=== PATIENT | male | born 1970 | race Caucasian/White ===

== ENCOUNTER 2019-02-19 06:36 | Inpatient (IN) ==
[2019-02-19 07:15] VITALS: BMI 35.9
--- NOTE | 2019-02-19 07:32 | DR.AMS ---
HPI - Time Seen Time seen: 07:16 - PCP Primary Care Physician: miguelina - Complaint Cheif Complaint Doctors Comments: states the patient has had a virus earlier this week but told her he felt better yesterday but he did not eat and had increased drinking yesterday. States he has been confused going to the wrong room and not using his c-pap at night. He has a growth on the left side of his neck for over a year that he would not go to the doctor for evaluation because he was afraid of what they would find. States Dr. Pina gave him a requ est for x-rays of his neck but he would never go have them done. state he has been talking "out of his head today.". He has a sore on the right lower abdomen that has been draining and rash between his legs that he is not taking any medicines for. He was smoking three packs cigarettes daily but now is down to less than a pack daily. States she was trying to get him to come to the emergency room this morning and he fell and she and family members could not get him up and they call EMS and they brought him to the emergency room. He was a patient of Dr. Duarte. states he has had blood test but they have not told him he was a diabetic but he has high blood pressure. states he has beed drinking over a gallon of milk and juice yesterday and has been going to the bathroom constanty. They have a strong family history of diabetes. Chief Complaint:: PT BROUGHT IN VIA EMS. EMS TONED OUT TO MAN IN YARD AND SPOUSE COULDN NOT GET HIM OUT. PT IS WET FROM THE RAIN, PLACED DRY GOWN ON PT. PT IS NOT ABLE TO COMMUNITCATE VERBAL BUT DOES FOLLOW COMMANDS WHEN ASK TO TURN TO SIDE TO GET WET LINENS AND CLOTHES OFF. DREAD, SPOUSE OF STATES, PT HAS HAD A VIRUS OF SOME KIND. NAUSEA, DIARRHEA AND WEAK. HE STARTED BEING CONFUSED YESTERDAY. SPOUSE ALSO POINTS OUT WOUND IN RIGHT GROIN AREA, AND MASS LIKE KNOT ON LEFT SIDE OF PT NECK. - Reviewed Nurses Notes Reviewed: Yes - Source History Provided: Family Member - Mode of Arrival Mode of Arrival: EMS - Timing Onset of Chief Complaint: 02/19/19 Came On: Gradually Symptoms: Worsening Symptom Onset: Unknown - Duration Duration: Constant How lon Duration: Days - Quality Quality: Decreased Alertness, Change in Behavior, Confusion, Not Eating - Severity Severity: Severe, Unable to care for self - Context Recent: None History Of: None - Associated Signs and Symptoms Associated Signs and Symptoms: Generalized Weakness, Change in Behavior, Confusion, Decreased LOC, Change in Memory, Decreased Oral Intake PMH - PMH Past Medical History: Yes Past Medical History: Anxiety, Depression, Hyperthyroidism, Hypothyroidism Past Surgical History: Yes Surgical History: Abdominal Surgery - Family History History of Family Medical Conditions: Yes Family Medical History: [place], Hypertension - Social History Does patient currently use any type of tobacco product: Yes Have you used tobacco products in the last 12 months: Yes Type of Tobacco Use: Cigarettes Does any household member use tobacco: No Alcohol Use: Occasionally Do you use any recreational Drugs:: No Lives With: Spouse Lives Where: Home - infectious screening In the last 2 months have you had wt loss of >10#?: NO Have you had fever, night sweats or hemotysis?: No Have you traveled outside the country in the last 6 months?: No Isolation: Standard ROS - Review of Systems Constitutional: No Symptoms Reported, Weakness, Loss of Appetite Eyes: No Symptoms Reported ENTM: No Symptoms Reported Respiratoy: No Symptoms Reported Cardiovascular: No Symptoms Reported. negative: See HPI, Chest Pain, Edema, Palpitations, Syncope, Cyanosis, Skin Mottling, Other Gastrointestinal/Abdominal: No Symptoms Reported. negative: See HPI, Abdominal Pain, Constipation, Diarrhea, Nausea, Vomiting, Food Intolerance, Other Genitourinary: No Symptoms Reported Neurological: No Symptoms Reported, Depressed, Emotional Problems, Weakness, Problems Walking Musculoskeletal: No Symptoms Reported Integumentary: No Symptoms Reported, Lesions (left neck hard lesion greater than 10 cm), Wound (right groin draining lesion from skin; purulent secretion) Hematologic/Lymphatic: No Symptoms Reported Endocrine: No Symptoms Reported, Increased Thirst, Decreased Appetite Psychiatric: Depression PE - General Limitations: Altered Mental Status (not answering questions or attempting to talk) General Appearance: Lethargic, In Distress, Obese - Head Head Exam: Normal Inspection, Atraumatic, Normocephalic Head Exam Physical: negative: Laceration, Abrasion, Contusion, Hematoma, Raccoon Eyes, Monroe's Sign, Tenderness of Temporal Artery, CSF Rhinorrhea, CSF Otorrhea, Other - Eyes Eye exam: Normal Appearance, PERRL, EOMI. negative: Scleral Icterus, Conjunctival Injection, Nystagmus, Miosis, Mydrasis, Periorbital Swelling, Periorbital Tenderness, Other Pupils: Regular, Round: Bilateral, Reactive: Bilateral - ENT ENT Exam: Normal Exam, Normal Oropharynx, Normal External Ear Exam, Mucous Membranes Dry, TM's Normal Bilaterally External Ear Exam: Normal External Inspection TM/Canal Exam: Bilateral Normal Nose Exam: Normal Nose Exam. negative: Sinus Tenderness, Nasal Deviation, Crepitus, Septal Hematoma, Laceration, Abrasion, Other Mouth Exam: Normal Inspection. negative: Drooling, Trismus, Lip Swelling, Tongue Elevation, Tongue Swelling, Laceration, Other Throat Exam: Normal Inspection. negative: Tonsillar Erythema, Tonsillomegaly, Tonsillar Exudate, R Peritonsillar Mass, L Peritonsillar Mass, Muffled Voice, Other - Neck Neck Exam: Full ROM, Trachea Midline. negative: Normal Inspection (left lateral neck with large hard mass submandibular area) - Chest Chest Inspection: Normal Inspection, Symmetric Chest Wall Rise - Respiratory Respiratory Exam: Normal Lung Sounds Bilat Respiratory Exam: Bilateral Clear to Auscultation, Bilateral Decreased Breath Sounds - Cardiovascular Cardiovascular Exam: Regular Rate, Normal Rhythm, Normal Heart Sounds, Systolic Murmur - Abdominal Exam Abdominal Exam: Normal Inspection, Normal Bowel Sounds, Soft, Distention, Other (right lower abdomen inguinal area with 2cm lesion draining purulent secretion; firm area) Abdominal Tenderness: LUQ, Mild - Extremities Extremities Exam: Normal Inspection, Full ROM, Normal Capillary Refill. negative: Tenderness, Edema, Joint Swelling, Calf Tenderness, Other - Back Back Exam: Normal Inspection, Full ROM - Neurological Neurological Exam: Alert, Reflexes Normal. negative: Oriented X3 (patient not responding verbally but hold family members hand), Normal Gait (gait not tested) Patient Oriented To: Person. negative: Place (unable to evaluate; patient not answering questions) Speech: Expressive Aphasia Cranial Nerve Exam: Gag reflex (XI): Normal, Tongue Deviation: Normal Cerebellar Function: negative: Normal Gait (gait not tested) Upper Motor Neuron Exam: Babinski Sign: Normal DTR: bicep (L): 2+, bicep (R): 2+, Patellar (L): 2+, patellar (R): 2+ - Psychological Psychiatric Exam: Depressed ( states he has been depressed), Flat Affect. negative: Normal Mood (patient will not answer question) Expanded Psychiatric Exam: Poor Eye Contact. negative: Loose Associations (non- verbal; not responding to questions) - Skin Skin Exam: Warm, Dry (drainage right lower abdomen with abscess), Intact, Rash (groin rash inner thighs), Erythema - Vitals Vital Signs: Temp Pulse Resp BP Pulse Ox 02/19/19 06:59 97.8 F 126 H 30 H 133/95 98 ROR - Labs Reviewed Result Diagrams: 02/19/19 07:10 02/19/19 07:10 - Labs Reviewed Laboratory: WBC 12.0 X10^3/uL (3.6-10.0) H 02/19/19 07:10 RBC 5.18 X10^6/uL (4.7-6.0) 02/19/19 07:10 Hgb 17.0 g/dL (13.5-18.0) 02/19/19 07:10 Hct 53.3 % (42.0-54.0) 02/19/19 07:10 MCV 102.8 fL (80.0-100.0) H 02/19/19 07:10 MCH 32.8 pg (27.0-34.0) 02/19/19 07:10 MCHC 31.9 g/dL (33.0-35.0) L 02/19/19 07:10 RDW 14.6 % (11.6-16.5) 02/19/19 07:10 Plt Count 279 X10^3/uL (150.0-450.0) 02/19/19 07:10 MPV 11.6 fL (7.4-11.0) H 02/19/19 07:10 Neut % (Auto) 83.3 % (42.0-75.0) H 02/19/19 07:10 Lymph % (Auto) 7.4 % (21.0-51.0) L 02/19/19 07:10 Potter % (Auto) 8.8 % (0.0-13.0) 02/19/19 07:10 Eos % (Auto) 0.1 % (0.9-2.9) L 02/19/19 07:10 Baso % (Auto) 0.4 % (0.2-1.0) 02/19/19 07:10 Neut # (Auto) 10.0 x10^3/uL (2.2-4.8) H 02/19/19 07:10 Lymph # (Auto) 0.9 X10^3/uL (1.3-2.9) L 02/19/19 07:10 Potter # (Auto) 1.1 x10^3/uL (0.3-0.8) H 02/19/19 07:10 Eos # (Auto) 0.0 x10^3/uL (0.0-0.2) 02/19/19 07:10 Baso # (Auto) 0.1 X10^3/uL (0.0-0.1) 02/19/19 07:10 Absolute Nucleated RBC 0.1 /100WBC 02/19/19 07:10 PT 13.2 SECONDS (11.8-14.3) 02/19/19 07:10 INR Target Range - 02/19/19 07:10 INR 1.04 (0.8-1.3) 02/19/19 07:10 APTT 25.2 SECONDS (22.9-36.5) 02/19/19 07:10 PTT Comment - 02/19/19 07:10 Sample Site Lr 02/19/19 08:15 ABG pH 7.340 (7.35-7.45) L 02/19/19 08:15 ABG pCO2 32.0 mmHg (35.0-45.0) L 02/19/19 08:15 ABG pO2 81.0 mmHg (80.0-100.0) 02/19/19 08:15 ABG HCO3 17.3 mmol/L (22-26) L* 02/19/19 08:15 ABG O2 Saturation 95.0 % (90-100) 02/19/19 08:15 ABG Base Excess -7.5 mmol/L (-2.0-2.0) L 02/19/19 08:15 Axel Test Pos 02/19/19 08:15 A-a Gradient 79.0 mmHg 02/19/19 08:15 FiO2 28.0 02/19/19 08:15 Blood Gas Comments Som well cb 02/19/19 08:15 Sodium 141 mmol/L (136-145) 02/19/19 07:10 Corrected Sodium 172 mmol/L (136-145) H 02/19/19 07:10 Potassium 4.3 mmol/L (3.5-5.1) 02/19/19 07:10 Chloride 101 mmol/L (98-107) 02/19/19 07:10 Carbon Dioxide 17.6 mmol/L (21-32) L 02/19/19 07:10 BUN 29 mg/dL (7-18) H 02/19/19 07:10 Creatinine 2.07 mg/dL (0.70-1.30) H 02/19/19 07:10 Est GFR (MDRD) Af Amer 44 (>60) L 02/19/19 07:10 Est GFR (MDRD) Non-Af 36 (>60) L 02/19/19 07:10 Glucose 1399 mg/dL (65-99) H* 02/19/19 07:10 Calcium 11.8 mg/dL (8.5-10.1) H 02/19/19 07:10 Corrected Calcium TNP 02/19/19 07:10 Magnesium 3.1 mg/dL (1.7-2.9) H 02/19/19 07:10 Total Bilirubin 0.60 mg/dL (0.2-1.0) 02/19/19 07:10 AST 59 Units/L (15-37) H 02/19/19 07:10 ALT 100 Units/L (12-78) H 02/19/19 07:10 Alkaline Phosphatase 434 Units/L (46-116) H 02/19/19 07:10 Creatine Kinase 95 Units/L (39-308) 02/19/19 07:10 CK-MB (CK-2) < 1.0 ng/mL (0-4.0) 02/19/19 07:10 CK/CKMB % Calc 1.1 % (<4) 02/19/19 07:10 Troponin I < 0.02 ng/mL (0-1.5) 02/19/19 07:10 Total Protein 9.0 g/dL (6.4-8.2) H 02/19/19 07:10 Albumin 3.8 g/dL (3.4-5.0) 02/19/19 07:10 Globulin 5.2 g/dL (2.5-4.5) H 02/19/19 07:10 Albumin/Globulin Ratio 0.7 Ratio (1.1-2.1) L 02/19/19 07:10 Specimen Type Random urine 02/19/19 06:55 Urine Color Yellow (YELLOW) 02/19/19 06:55 Urine Appearance Clear (CLEAR) 02/19/19 06:55 Urine pH 5.0 (5.0 - 8.0) 02/19/19 06:55 Ur Specific Thida 1.010 (1.000-1.030) 02/19/19 06:55 Urine Protein 2+ (NEGATIVE) 02/19/19 06:55 Urine Glucose (UA) 4+ (NEGATIVE) 02/19/19 06:55 Urine Ketones 2+ (NEGATIVE) 02/19/19 06:55 Urine Occult Blood 3+ (NEGATIVE) 02/19/19 06:55 Urine Nitrite Negative (NEGATIVE) 02/19/19 06:55 Urine Bilirubin Negative (NEGATIVE) 02/19/19 06:55 Urine Urobilinogen Normal (NORMAL) 02/19/19 06:55 Ur Leukocyte Esterase Negative (NEGATIVE) 02/19/19 06:55 Urine RBC 3-5 /HPF (0-3) A 02/19/19 06:55 Urine WBC 0-2 /HPF (0-5) 02/19/19 06:55 Ur Squamous Epith Cells Rare /HPF (NEGATIVE) 02/19/19 06:55 Urine Bacteria Negative /HPF (NEGATIVE) 02/19/19 06:55 Ur Culture Indicated? No/not indicated 02/19/19 06:55 Urine Opiates Screen Negative (NEG=<300) 02/19/19 06:55 Urine Methadone Screen Negative (NEG=<300) 02/19/19 06:55 Ur Barbiturates Screen Negative (NEG=<200) 02/19/19 06:55 Ur Phencyclidine Scrn Negative (NEG=<25) 02/19/19 06:55 Ur Amphetamines Screen Negative (NEG=<1000) 02/19/19 06:55 U Benzodiazepines Scrn Negative (NEG=<200) 02/19/19 06:55 Urine Cocaine Screen Negative (NEG=<300) 02/19/19 06:55 U Marijuana (THC) Screen Negative (NEG=<50) 02/19/19 06:55 Opioid - Opioid Risk Tool Age (Jarrod box if 16-45): No History of Preadolescent Sexual Abuse: No Total: 0 Total Score Risk Category: Low Risk - Diagnosis Discharge Problem: Diabetic keto-acidosis Qualifiers: Diabetes mellitus complication detail: without coma - Discharge Plan Condition: Stable - Follow ups/Referrals Follow ups/Referrals: ALE DUARTE [Primary Care Provider] - 3 days - Instructions
[2019-02-19 07:36] LABS: BILIRUBIN,URINE NEGATIVE (NEGATIVE); BLOOD/HEMOGLOBIN,URINE 3+ (NEGATIVE); GLUCOSE, URINE 4+ (NEGATIVE); KETONES,URINE 2+ (NEGATIVE); LEUKOCYTE ESTERASE ,URINE NEGATIVE (NEGATIVE); NITRITES,URINE NEGATIVE (NEGATIVE); PROTEIN,URINE 2+ (NEGATIVE); UROBILINOGEN,URINE NORMAL (NORMAL)
[2019-02-19] MEDS ORDERED: NS 1000 ML 1,000 ML ONE ×3 (07:36→10:42)
[2019-02-19 07:39] LABS: APPEARANCE,URINE CLEAR (CLEAR); BACTERIA,URINE NEGATIVE /HPF (NEGATIVE); COLOR,URINE YELLOW (YELLOW); SQUAMOUS EPITHELIAL CELL,UR RARE /HPF (NEGATIVE)
[2019-02-19 07:51] LABS: BASOPHILS # (AUTO) 0.1 X10^3/uL (0.0-0.1); BASOPHILS % (AUTO) 0.4 % (0.2-1.0); EOSINOPHILS % (AUTO) 0.1 % (0.9-2.9); HEMATOCRIT 53.3 % (42.0-54.0); LYMPHOCYTES # (AUTO) 0.9 X10^3/uL (1.3-2.9); LYMPHOCYTES % (AUTO) 7.4 % (21.0-51.0); MEAN CORPUSCULAR HEMOGLOBIN 32.8 pg (27.0-34.0); MEAN CORPUSCULAR HGB CONC 31.9 g/dL (33.0-35.0); MEAN CORPUSCULAR VOLUME 102.8 fL (80.0-100.0); MEAN PLATELET VOLUME 11.6 fL (7.4-11.0); MONOCYTES # (AUTO) 1.1 x10^3/uL (0.3-0.8); MONOCYTES % (AUTO) 8.8 % (0.0-13.0); NEUTROPHILS % (AUTO) 83.3 % (42.0-75.0); PLATELET COUNT 279 X10^3/uL (150.0-450.0); RED BLOOD COUNT 5.18 X10^6/uL (4.7-6.0); RED CELL DISTRIBUTION WIDTH 14.6 % (11.6-16.5)
[2019-02-19] MEDS ORDERED: NS 1000 ML 1,000 ML IV SCH (08:00)
[2019-02-19 08:03] LABS: BLOOD UREA NITROGEN 29 mg/dL (7-18); CALCIUM 11.8 mg/dL (8.5-10.1); CARBON DIOXIDE 17.6 mmol/L (21-32); CHLORIDE 101 mmol/L (98-107); CREATININE 2.07 mg/dL (0.70-1.30); SODIUM 141 mmol/L (136-145); TROPONIN I < 0.02 ng/mL (0-1.5); eGFR NON BLACK RACES 36 (>60)
[2019-02-19 08:07] LABS: ALANINE AMINOTRANSFERASE 100 Units/L (12-78); ALBUMIN 3.8 g/dL (3.4-5.0); ALKALINE PHOSPHATASE 434 Units/L (46-116); ASPARTATE AMINO TRANSFERASE 59 Units/L (15-37); CKMB % 1.1 % (<4); CREATINE KINASE 95 Units/L (39-308); CREATINE KINASE MB < 1.0 ng/mL (0-4.0); MAGNESIUM 3.1 mg/dL (1.7-2.9)
[2019-02-19 08:16] LABS: COR NA(FOR HYPERGLY) 172 mmol/L (136-145)
[2019-02-19 08:20] LABS: ABG ALLEN TEST POS; ABG BASE EXCESS -7.5 mmol/L (-2.0-2.0); ABG HCO3 17.3 mmol/L (22-26)
[2019-02-19] MEDS ORDERED: HumuLIN R SUBCUT PRN (08:21)
[2019-02-19] MEDS ORDERED: HumuLIN R ONE (08:27)
[2019-02-19] MEDS ORDERED: MYXREDLIN 100 UNIT/100 ML BAG 100 UNIT/100 ML PLAST..BAG IV ONE (08:27)
[2019-02-19] MEDS ORDERED: NS 100 ML IV 100 ML IV ONE (08:27)
[2019-02-19] MEDS ORDERED: HumuLIN R IV ONE ×2 (08:50→22:48)
--- NOTE | 2019-02-19 08:57 | CT ---
HISTORYAMS, FALLSTUDYBRAIN W/O CONCOMPARISONNone.TECHNIQUEMultiple axial images of the brain were obtained from the skull base to the vertex without administration of IV contrast. Dose reduction techniques including Automated Exposure Control (AEC) and adjustment of mA and kV were utilized.FINDINGSNo acute intraparenchymal hemorrhage or mass can be identified. No extra-axial fluid collections are seen. No alteration in the attenuation of the brain parenchyma can be identified to suggest acute or subacute ischemic change. The ventricular system is symmetric and nondilated. The extracranial structures are grossly unremarkable.IMPRESSIONNo acute intracranial process can be identified.Electronically signed by: MICHELLE ANTHONY (Feb 19, 2019 08:56:27)
--- NOTE | 2019-02-19 09:14 | CT ---
HISTORYLEFT LATERAL NECK MASSSTUDYSOFT TISSUE NECK W/O CONCOMPARISONNone.TECHNIQUEMultiple axial images of the soft tissue neck were obtained from skull base to the aortic arch [without] the administration of IV contrast. Sagittal and coronal reformats were performed and reviewed. Dose reduction techniques including Automated Exposure Control (AEC) and adjustment of mA and kV were utilized.FINDINGSOptimal evaluation is limited given the lack of intravenous contrast. There is an incompletely evaluated 5-6 cm soft tissue mass within the left neck posterior to the angle of the mandible. Additional soft tissue mass/lymphadenopathy is present along the anterior lateral aspect of carotid artery on the left. There is a questionable mass of the oropharynx on the left. The airway is patent. The parotid glands, submandibular glands and thyroid gland are unremarkable in their [noncontrast] appearance. The included portions of the lung bases are clear. There is multilevel degenerative disc disease of the cervical spine. The bony structures appear intact.IMPRESSIONOptimal evaluation is limited given the lack of intravenous contrast. There are incompletely characterized soft tissue masses/lymphadenopathy of the left neck as above. There is a questionable mass in the oropharynx on the left as well. CT of the soft tissues of the neck with IV contrast is recommended for further evaluation.Electronically signed by: MICHELLE ANTHONY (Feb 19, 2019 09:12:25)
[2019-02-19 09:19] LABS: BILIRUBIN,URINE NEGATIVE (NEGATIVE); BLOOD/HEMOGLOBIN,URINE 4+ (NEGATIVE); GLUCOSE, URINE 4+ (NEGATIVE); KETONES,URINE 2+ (NEGATIVE); LEUKOCYTE ESTERASE ,URINE NEGATIVE (NEGATIVE); NITRITES,URINE NEGATIVE (NEGATIVE); PROTEIN,URINE 2+ (NEGATIVE); UROBILINOGEN,URINE NORMAL (NORMAL)
[2019-02-19 09:32] LABS: AMORPHOUS SEDIMENT,UR 1+ /HPF (NEGATIVE); APPEARANCE,URINE CLEAR (CLEAR); BACTERIA,URINE NEGATIVE /HPF (NEGATIVE); COLOR,URINE PALE YELLOW (YELLOW); SQUAMOUS EPITHELIAL CELL,UR NEGATIVE /HPF (NEGATIVE)
[2019-02-19] MEDS ORDERED: NS 250 ML IV 250 ML IV ONE ×2 (10:15→10:42)
[2019-02-19] MEDS ORDERED: VANCOMYCIN HCL ONE ×2 (10:15)
--- NOTE | 2019-02-19 10:36 | RAD ---
HISTORYCHEST PAIN, SOBSTUDYCHEST, 1 VIEWCOMPARISONNoneFINDINGSThe trachea is midline. The cardiac silhouette is unremarkable . The lungs are clear without focal infiltrate or effusion. The bony thorax is unremarkable.IMPRESSIONNo acute cardiopulmonary disease.Electronically signed by: SHEBA VELASQUEZ (Feb 19, 2019 10:35:16)
[2019-02-19] MEDS: VANCOMYCIN HCL 500 MG, VANCOMYCIN HCL 1 G in NS 250 ML IV 250 ML IV SCH (11:03)
[2019-02-19] MEDS ORDERED: NS 250 ML IV 250 ML IV PRN (11:05)
[2019-02-19 11:11] LABS: CALCIUM 11.4 mg/dL (8.5-10.1); CARBON DIOXIDE 20.1 mmol/L (21-32)
[2019-02-19] MEDS ORDERED: NS 1000 ML 1,000 ML IV ONE ×2 (11:27→11:31)
[2019-02-19] MEDS ORDERED: NS 250 ML IV 250 ML IV SCH (11:30)
[2019-02-19] MEDS ORDERED: NS 1/2 1000 ML IV 1,000 ML IV ONE (12:04)
[2019-02-19] MEDS ORDERED: NS 1/2 + KCL 20 MEQ/L 1,000 ML IV SCH (12:30)
--- NOTE | 2019-02-19 13:39 | DR.H&P ---
H&P - History & Physical for Day of: H&P Date: 02/19/19 - Chief Complaint Chief Complaint: AMS - History of Present Illness History of Present Illness: PT IS 48 WM ER ADMISSION WITH AMS, NEW ONSET DIABETES. states the patient has had a virus earlier this week but told her he felt better yesterday but he did not eat and had increased drinking yesterday. States he has been confused going to the wrong room and not using his c-pap at night. He has a growth on the left side of his neck for over a year that he would not go to the doctor for evaluation because he was afraid of what they would find. States Dr. Pina gave him a request for x-rays of his neck but he would never go have them done. state he has been talking "out of his head today.". He has a sore on the right lower abdomen that has been draining and rash between his legs that he is not taking any medicines for. He was smoking three packs cigarettes daily but now is down to less than a pack daily. States she was trying to get him to come to the emergency room this morning and he fell and she and family members could not get him up and they call EMS and they brought him to the emergency room. He was a patient of Nena Laureano. states he has had blood test but they have not told him he was a diabetic but he has high blood pressure. states he has beed drinking over a gallon of milk and juice yesterday and has been going to the bathroom constanty. They have a strong family history of diabetes. - Past Medical History Past Medical History: Anxiety, Depression, Hyperthyroidism, Hypothyroidism - Past Surgical History Surgical History: Abdominal Surgery - Family History Family Medical History: [place], Hypertension - Social History Does patient currently use any type of tobacco product: Yes Have you used tobacco products in the last 12 months: Yes Type of Tobacco Use: Cigarettes How many years tobacco product used: 50 Does any household member use tobacco: No Alcohol Use: Occasionally Drug Use: None - Medications Home Medications: No Known Drug Allergies Allergy (Verified 02/19/19 07:01) - Review of Systems Constitutional: Weakness, Malaise Eyes: No Symptoms Reported ENT: No Symptoms Reported Respiratory: Shortness of Breath Cardiovascular: Edema Gastrointestinal: Nausea, Vomiting, Diarrhea Genitourinary: Frequency Musculoskeletal: No Symptoms Reported Skin: Wound (right groin) Neurological: Confusion - Physical Exam Vital Signs: Temperature 98.6 F Pulse Rate [Apical] 129 Pulse Rate 126 Respiratory Rate 35 Blood Pressure [Left Arm] 126/81 Blood Pressure 109/70 O2 Sat by Pulse Oximetry 98 Oriented: Not Oriented Eyes: negative: Normal Ear: Normal Nose: Normal Throat: Dry Respiratory: RLL Diminished, LLL Diminished Cardiovascular: Tachycardia, Edema : Normal Auscultation: Bowel Sounds: Normal Palpation: Normal Tenderness: Normal Skin: Decreased Turgur, Wound (open 2.5cm wound to right groin) Musculoskeletal: Swelling (left side neck) Psychiatric: Anxiety Affect: Anxious Speech Pattern: Inappropriate - Assessment/Plan (1) AMS (altered mental status) Status: Acute Plan: admit, ICU INSULIN DRIP. IV ROCEPHIN, IV VANCOMYCIN. CONTINOUS SUPPLEMENTAL O2. IV HYDRATION, SERIAL BMP, ABG ON ADMISION. CT HEAD W/O ACUTE FINDINGS IN ER, CONTINUE NEUROCHECKS. ESTRADA CATH WITH STRICT I &OS. CULTURES OBTAINED ON ADMISSION (2) Hyperglycemia Status: Acute (3) Diabetes mellitus, new onset Status: Acute (4) Hypernatremia Status: Acute (5) Hypertension Status: Acute (6) Sepsis Status: Acute - Allergies Allergies/Adverse Reactions: Allergies Allergy/AdvReac Type Severity Reaction Status Date / Time No Known Drug Allergies Allergy Verified 02/19/19 07:01
[2019-02-19] MEDS ORDERED: NS 100 ML IV + SPIKE MINIBAG* 100 ML IV ONE (13:45)
[2019-02-19] MEDS: ROCEPHIN VIAL 1 GRAM 1 G in NS 100 ML IV + SPIKE MINIBAG* 100 ML IV SCH (13:52)
[2019-02-19 15:16] LABS: CALCIUM 11.1 mg/dL (8.5-10.1); CARBON DIOXIDE 20.5 mmol/L (21-32); CREATININE 1.57 mg/dL (0.70-1.30)
[2019-02-19] MEDS: HumuLIN R SUBCUT ONE ×2 (15:20→15:22)
[2019-02-19] MEDS: HALDOL INJ IVP PRN (15:20)
[2019-02-19] MEDS: LEVEMIR SC SCH ×2 (15:22→21:18)
[2019-02-19] MEDS ORDERED: STERILE WATER IRRIGATION IR ONE (18:32)
[2019-02-19 19:00] LABS: CARBON DIOXIDE 17.7 mmol/L (21-32); CREATININE 1.83 mg/dL (0.70-1.30)
[2019-02-19] MEDS: NS 1/2 + KCL 20 MEQ/L 1,000 ML IV SCH ×2 (19:59→22:00)
[2019-02-19] MEDS ORDERED: SNACK - Diabetic Appropriate PO SCH ×4 (20:00)
[2019-02-19] MEDS: HumuLIN R SC PRN (21:47)
[2019-02-19 22:30] LABS: CALCIUM 9.6 mg/dL (8.5-10.1); CARBON DIOXIDE 16.3 mmol/L (21-32); CREATININE 2.04 mg/dL (0.70-1.30)
[2019-02-20 02:24] LABS: BASOPHILS # (AUTO) 0.2 X10^3/uL (0.0-0.1); HEMATOCRIT 47.7 % (42.0-54.0); LYMPHOCYTES # (AUTO) 2.7 X10^3/uL (1.3-2.9); LYMPHOCYTES % (AUTO) 12.8 % (21.0-51.0); MEAN CORPUSCULAR HGB CONC 33.5 g/dL (33.0-35.0); MEAN CORPUSCULAR VOLUME 95.6 fL (80.0-100.0); MEAN PLATELET VOLUME 10.6 fL (7.4-11.0); MONOCYTES # (AUTO) 2.1 x10^3/uL (0.3-0.8); MONOCYTES % (AUTO) 9.7 % (0.0-13.0); NEUTROPHILS # (AUTO) 16.2 x10^3/uL (2.2-4.8); NEUTROPHILS % (AUTO) 76.5 % (42.0-75.0); PLATELET COUNT 247 X10^3/uL (150.0-450.0); RED BLOOD COUNT 4.99 X10^6/uL (4.7-6.0); RED CELL DISTRIBUTION WIDTH 14.2 % (11.6-16.5); WHITE BLOOD COUNT 21.2 X10^3/uL (3.6-10.0)
[2019-02-20 02:33] LABS: ALBUMIN 3.3 g/dL (3.4-5.0); CALCIUM 9.6 mg/dL (8.5-10.1); CARBON DIOXIDE 15.1 mmol/L (21-32); COR CA(FOR HYPOALB) 10.2 mg/dL (8.5-10.1); CREATININE 2.17 mg/dL (0.70-1.30); MAGNESIUM 2.6 mg/dL (1.7-2.9); TOTAL PROTEIN 7.9 g/dL (6.4-8.2)
[2019-02-20 03:29] LABS: BAND NEUTROPHILS % 1 % (0-10); PLATELET MORPHOLOGY COMMENT NORMAL (NORMAL)
[2019-02-20] MEDS: NS 1/2 + KCL 20 MEQ/L 1,000 ML IV SCH (03:31)
[2019-02-20 04:41] LABS: BILIRUBIN,URINE NEGATIVE (NEGATIVE); BLOOD/HEMOGLOBIN,URINE 5+ (NEGATIVE); GLUCOSE, URINE 4+ (NEGATIVE); KETONES,URINE 3+ (NEGATIVE); LEUKOCYTE ESTERASE ,URINE NEGATIVE (NEGATIVE); NITRITES,URINE NEGATIVE (NEGATIVE); PROTEIN,URINE 3+ (NEGATIVE); UROBILINOGEN,URINE NORMAL (NORMAL)
[2019-02-20 04:49] LABS: APPEARANCE,URINE SLIGHTLY HAZY (CLEAR); COLOR,URINE YELLOW (YELLOW)
[2019-02-20 04:50] LABS: BACTERIA,URINE TRACE /HPF (NEGATIVE); COARSE GRANULAR CASTS,URINE FEW /HPF (NEGATIVE); HYALINE CASTS, URINE FEW /LPF (NEGATIVE); SQUAMOUS EPITHELIAL CELL,UR RARE /HPF (NEGATIVE)
[2019-02-20] MEDS: HALDOL INJ IVP PRN (05:55)
[2019-02-20] MEDS: HumuLIN R SC PRN (06:44)
[2019-02-20] MEDS: LEVEMIR SC SCH (08:27)
[2019-02-20] MEDS: ROCEPHIN VIAL 1 GRAM 1 G in NS 100 ML IV + SPIKE MINIBAG* 100 ML IV SCH (08:28)
--- NOTE | 2019-02-20 08:40 | RAD ---
HISTORYShortness of breathSTUDYPortable AP chestCOMPARISONJanuary 12thFINDINGSThe lungs are clear and the heart is mildly enlarged. There is no edema or effusion or congestion. No significant bony abnormality is demonstrated.IMPRESSIONNo evidence for acute cardiopulmonary diseaseElectronically signed by: MARIO KENDALL (Feb 20, 2019 08:39:35)
[2019-02-20] MEDS ORDERED: HALDOL INJ IM ONE (09:24)
[2019-02-20 09:57] LABS: BASOPHILS # (AUTO) 0.2 X10^3/uL (0.0-0.1); BASOPHILS % (AUTO) 1.1 % (0.2-1.0); HEMATOCRIT 48.4 % (42.0-54.0); LYMPHOCYTES # (AUTO) 3.3 X10^3/uL (1.3-2.9); MEAN CORPUSCULAR VOLUME 96.9 fL (80.0-100.0); MEAN PLATELET VOLUME 10.5 fL (7.4-11.0); MONOCYTES # (AUTO) 2.2 x10^3/uL (0.3-0.8); MONOCYTES % (AUTO) 10.7 % (0.0-13.0); NEUTROPHILS # (AUTO) 14.9 x10^3/uL (2.2-4.8); NEUTROPHILS % (AUTO) 72.2 % (42.0-75.0); PLATELET COUNT 230 X10^3/uL (150.0-450.0); RED CELL DISTRIBUTION WIDTH 14.5 % (11.6-16.5); WHITE BLOOD COUNT 20.6 X10^3/uL (3.6-10.0)
[2019-02-20] MEDS: STERILE WATER FOR INJECTION IV SCH ×9 (10:04→15:15)
[2019-02-20] MEDS: SODIUM CHL IV SCH ×9 (10:04→15:15)
[2019-02-20] MEDS: [UNRECOGNIZED DRUG - OTHER] IV SCH ×9 (10:04→15:15)
[2019-02-20 10:08] LABS: ALBUMIN 3.3 g/dL (3.4-5.0); CALCIUM 9.8 mg/dL (8.5-10.1); CARBON DIOXIDE 20.8 mmol/L (21-32); COR CA(FOR HYPOALB) 10.4 mg/dL (8.5-10.1); CREATININE 2.53 mg/dL (0.70-1.30)
[2019-02-20 10:11] LABS: LACTIC ACID 5.7 mmol/L (0.4-2.0)
[2019-02-20] MEDS: VANCOMYCIN HCL 500 MG, VANCOMYCIN HCL 1 G in NS 250 ML IV 250 ML IV SCH (10:55)
[2019-02-20] MEDS ORDERED: STERILE WATER FOR INJECTION 1,000 ML with SODIUM CHL CONCENTRATE* 23.4% 34 MEQ IV SCH ×2 (11:00)
[2019-02-20] MEDS ORDERED: MYXREDLIN 100 UNIT/100 ML BAG 100 UNIT/100 ML PLAST..BAG IV ONE ×2 (11:12→11:13)
[2019-02-20 11:16] LABS: ABG ALLEN TEST POS; ABG BASE EXCESS -5.3 mmol/L (-2.0-2.0); ABG HCO3 16.4 mmol/L (22-26)
[2019-02-20] MEDS ORDERED: ATIVAN INJ 2 MG VIAL IVP ONE ×2 (11:19→14:17)
[2019-02-20 13:15] LABS: BASOPHILS # (AUTO) 0.2 X10^3/uL (0.0-0.1); BASOPHILS % (AUTO) 1.1 % (0.2-1.0); EOSINOPHILS % (AUTO) 0.1 % (0.9-2.9); HEMATOCRIT 46.6 % (42.0-54.0); HEMOGLOBIN 15.8 g/dL (13.5-18.0); LYMPHOCYTES # (AUTO) 3.7 X10^3/uL (1.3-2.9); LYMPHOCYTES % (AUTO) 18.2 % (21.0-51.0); MEAN CORPUSCULAR HEMOGLOBIN 32.3 pg (27.0-34.0); MEAN CORPUSCULAR VOLUME 95.1 fL (80.0-100.0); MEAN PLATELET VOLUME 10.3 fL (7.4-11.0); MONOCYTES # (AUTO) 1.8 x10^3/uL (0.3-0.8); MONOCYTES % (AUTO) 8.7 % (0.0-13.0); NEUTROPHILS # (AUTO) 14.7 x10^3/uL (2.2-4.8); NEUTROPHILS % (AUTO) 71.9 % (42.0-75.0); PLATELET COUNT 229 X10^3/uL (150.0-450.0); RED CELL DISTRIBUTION WIDTH 14.3 % (11.6-16.5); WHITE BLOOD COUNT 20.4 X10^3/uL (3.6-10.0)
[2019-02-20 13:24] LABS: ALBUMIN 3.3 g/dL (3.4-5.0); CALCIUM 9.5 mg/dL (8.5-10.1); CARBON DIOXIDE 17.9 mmol/L (21-32); COR CA(FOR HYPOALB) 10.1 mg/dL (8.5-10.1); CREATININE 2.21 mg/dL (0.70-1.30); TOTAL PROTEIN 7.8 g/dL (6.4-8.2)
[2019-02-20] MEDS ORDERED: ATIVAN INJ 2 MG VIAL ONE (14:05)
[2019-02-20 14:50] VITALS: BP 146/92
[2019-02-20] MEDS ORDERED: SNACK - Diabetic Appropriate PO SCH (20:00)
[2019-02-22] MEDS ORDERED: PHARMACY COMMENT IV NR (08:30)
== END 2019-02-20 14:42 | disposition short-term general hospital (02) | DRG 948 ==
LOC: ER 06:36 → ICU 10:13
PROVIDERS: ADMIT Internal Medicine; ATTEND Internal Medicine
DX: R41.82 Altered mental status, unspecified; E87.0 Hyperosmolality and hypernatremia; R22.1 Localized swelling, mass and lump, neck; W18.39XA Other fall on same level, initial encounter; E03.8 Other specified hypothyroidism; R06.02 Shortness of breath; B95.7 Other staphylococcus as the cause of diseases classified elsewhere; F41.8 Other specified anxiety disorders; L02.214 Cutaneous abscess of groin; I10 Essential (primary) hypertension; Z79.899 Other long term (current) drug therapy; E11.65 Type 2 diabetes mellitus with hyperglycemia
CPT/HCPCS: 36415; 36600; 51702; 70450; 70490; 71010; 71045; 80048; 80053; 80307; 81001; 82009; 82550; 82553; 82803; 82947; 83036; 83605; 83735; 83880; 84484; 85025; 85610; 85730; 87040; 87070; 87075; 87077; 87186; 87205; 93005; 96365; 96367; 96372; 96374; 96375; 99285; A4217; A4222; A4618; A7030; J7030; G0434; J0696; J1630; J1815; J2060; J3370; J3480; J7050